=== PATIENT | female | born 1995 | race Caucasian/White ===

== ENCOUNTER 2023-04-30 11:24 | Emergency (ER) | payer OTHER ==
[~2023-04-30] VITALS: Ht 157.5 cm; Wt 61.2 kg
[2023-04-30] MEDS ORDERED: LEVOTHYROXINE75 MC1 PO (11:42)
== END 2023-04-30 14:34 | disposition home or self-care (01) ==
LOC: ER 11:24
DX: H66.90 Otitis media, unspecified, unspecified ear (principal)